=== PATIENT | female | born 1955 | race African-American/Black ===

== ENCOUNTER 2018-11-29 20:04 | Observation (INO) | payer MEDICARE, OTHER ==
[2018-11-29 23:13] LABS: ADD MAN DIFF? NO
[2018-11-29 23:17] LABS: BASOPHILS % 0.6 % (0.0-2.0); EOSINOPHILS # 0.2 10^3/ul (0.0-0.5); EOSINOPHILS % 2.5 % (0.0-7.0); HEMATOCRIT 35.2 % (37.0-47.0); HEMOGLOBIN 11.5 g/dl (12.0-16.0); LYMPHOCYTES # 2.6 10^3/ul (0.8-2.9); LYMPHOCYTES % 41.1 % (15.0-51.0); MEAN CORPUSCULAR HEMOGLOBIN 26.9 pg (29.0-33.0); MEAN CORPUSCULAR HGB CONC 32.7 g/dl (32.0-37.0); MEAN CORPUSCULAR VOLUME 82.4 fl (82.0-101.0); MEAN PLATELET VOLUME 11.1 fl (7.4-10.4); MONOCYTE # 0.4 10^3/ul (0.3-0.9); MONOCYTES % 6.6 % (0.0-11.0); NEUTROPHIL # 3.1 10^3/ul (1.6-7.5); NEUTROPHILS % 48.9 % (39.0-77.0); PLATELET COUNT 215 10^3/UL (140-415); RED BLOOD COUNT 4.27 10^6/ul (4.20-5.40); RED CELL DISTRIBUTION WIDTH 13.9 % (11.5-14.5)
[2018-11-29 23:17] LABS: WHITE BLOOD COUNT 6.4 10^3/ul (4.8-10.8)
[2018-11-29] MEDS: ASPIRIN 325 MG TAB PO (23:18)
[2018-11-29] MEDS: NITROGLYCERIN 2% 1 GM OINT PKT TD (23:18)
[2018-11-29 23:20] LABS: INR 0.91; PROTIME 12.4 Sec (11.9-14.9)
[2018-11-29 23:21] LABS: PARTIAL THROMBOPLASTIN TIME 29.7 Sec (23.0-35.0)
[2018-11-29 23:38] LABS: ANION GAP 8 (5-13); BLOOD UREA NITROGEN 19 mg/dl (7-20); CALCIUM 10.1 mg/dl (8.4-10.2); CARBON DIOXIDE 28 mmol/L (21-31); CHLORIDE 102 mmol/L (97-110); CREATININE 0.94 mg/dl (0.44-1.00); Estimated GFR > 60 mL/min (>60); GLUCOSE 268 mg/dl (70-220); POTASSIUM 4.8 mmol/L (3.5-5.1); SODIUM 138 mmol/L (135-144)
[2018-11-29 23:53] LABS: B-TYPE NATRIURETIC PEPTIDE 470 PG/ML (0-125); TROPONIN-I < 0.012 ng/ml (0.000-0.120)
[2018-11-30] MEDS ORDERED: GLUCOSE GEL 15 GRAM TUBE PO ×2 (04:00)
[2018-11-30] MEDS ORDERED: GLUCAGON 1 MG INJ IM (04:00)
[2018-11-30] MEDS ORDERED: GLUCOSE GEL 15 GRAM TUBE BUCCAL (04:00)
[2018-11-30] MEDS ORDERED: DEXTROSE 50% 50 ML SYRINGE IV ×2 (04:00)
[2018-11-30] MEDS: ACETAMINOPHEN 325 MG TAB PO (05:48)
[2018-11-30 06:27] LABS: ADD MAN DIFF? NO
[2018-11-30 06:32] LABS: WHITE BLOOD COUNT 5.4 10^3/ul (4.8-10.8)
[2018-11-30 06:32] LABS: BASOPHILS % 0.4 % (0.0-2.0); EOSINOPHILS # 0.2 10^3/ul (0.0-0.5); EOSINOPHILS % 3.3 % (0.0-7.0); HEMATOCRIT 32.4 % (37.0-47.0); HEMOGLOBIN 10.6 g/dl (12.0-16.0); LYMPHOCYTES # 2.2 10^3/ul (0.8-2.9); MEAN CORPUSCULAR HEMOGLOBIN 27.2 pg (29.0-33.0); MEAN CORPUSCULAR HGB CONC 32.7 g/dl (32.0-37.0); MEAN CORPUSCULAR VOLUME 83.1 fl (82.0-101.0); MEAN PLATELET VOLUME 11.2 fl (7.4-10.4); MONOCYTE # 0.4 10^3/ul (0.3-0.9); MONOCYTES % 7.4 % (0.0-11.0); NEUTROPHIL # 2.6 10^3/ul (1.6-7.5); NEUTROPHILS % 47.7 % (39.0-77.0); PLATELET COUNT 187 10^3/UL (140-415); RED CELL DISTRIBUTION WIDTH 13.8 % (11.5-14.5)
[2018-11-30 07:02] LABS: ALANINE AMINOTRANSFERASE 24 IU/L (13-69); ALBUMIN 3.7 g/dl (3.3-4.9); ALBUMIN/GLOBULIN RATIO 1.15; ALKALINE PHOSPHATASE 64 IU/L (42-121); ANION GAP 10 (5-13); ASPARTATE AMINO TRANSFERASE 19 IU/L (15-46); BILIRUBIN,INDIRECT 0.1 mg/dl (0-1.1); BILIRUBIN,TOTAL 0.1 mg/dl (0.2-1.3); BLOOD UREA NITROGEN 17 mg/dl (7-20); CALCIUM 9.7 mg/dl (8.4-10.2); CARBON DIOXIDE 26 mmol/L (21-31); CHLORIDE 104 mmol/L (97-110); CHOL/HDL RATIO 2.9 RATIO; CHOLESTEROL 105 mg/dl (100-200); CREATININE 1.05 mg/dl (0.44-1.00); Estimated GFR > 60 mL/min (>60); GLUCOSE 250 mg/dl (70-220); HDL CHOLESTEROL 36 mg/dl (35-98); LDL CHOLESTEROL,CALCULATED 27 mg/dl; POTASSIUM 4.3 mmol/L (3.5-5.1); SODIUM 140 mmol/L (135-144); TOTAL PROTEIN 6.9 g/dl (6.1-8.1); TRIGLYCERIDES 211 mg/dl (0-149)
[2018-11-30 07:06] LABS: CK-MB 0.45 ng/ml (0.0-2.4); TROPONIN-I < 0.012 ng/ml (0.000-0.120)
[2018-11-30 07:09] LABS: CK INDEX 1.2; CREATINE KINASE 37 IU/L (23-200)
[2018-11-30 07:16] LABS: HEMOGLOBIN A1C 9.3 % (0-5.9)
[2018-11-30] MEDS: FOLIC ACID 1 MG TAB PO (08:11)
[2018-11-30] MEDS: BENAZEPRIL 20 MG TAB PO (08:11)
[2018-11-30] MEDS: EZETIMIBE 10 MG TAB PO (08:11)
[2018-11-30] MEDS: DORZOLAMIDE/TIMOLOL 10 ML OPH BOTH EYES ×2 (08:11→21:11)
[2018-11-30] MEDS: INSULIN ASPART [NOVOLOG] 3 ML PEN SC ×4 (08:14→21:41)
[2018-11-30] MEDS: ENOXAPARIN 40 MG/0.4 ML SYG SC (08:15)
[2018-11-30] MEDS ORDERED: NON-FORMULARY/PATIENT OWN MED (Canagliflozin (Invokana) 300 MG) PO (09:00)
[2018-11-30] MEDS: MULTIVITAMINS/MINERALS TAB PO (10:15)
[2018-11-30 11:41] LABS: CREATINE KINASE 40 IU/L (23-200)
[2018-11-30 11:52] LABS: CK INDEX 1.1; CK-MB 0.42 ng/ml (0.0-2.4); TROPONIN-I < 0.012 ng/ml (0.000-0.120)
[2018-11-30] MEDS: ASPIRIN (EC) 81 MG TAB PO (14:26)
[2018-11-30] MEDS ORDERED: ATORVASTATIN 40 MG TAB PO (21:00)
[2018-11-30] MEDS: LATANOPROST 0.005% 2.5 ML OPH BOTH EYES (21:11)
[2018-11-30] MEDS: ATORVASTATIN 40 MG TAB PO (21:12)
[2018-12-01] MEDS: ACCU-CHEK XX (01:55)
[2018-12-01 06:12] LABS: ADD MAN DIFF? NO
[2018-12-01 06:19] LABS: WHITE BLOOD COUNT 4.9 10^3/ul (4.8-10.8)
[2018-12-01 06:19] LABS: BASOPHILS % 0.6 % (0.0-2.0); EOSINOPHILS # 0.1 10^3/ul (0.0-0.5); EOSINOPHILS % 2.4 % (0.0-7.0); HEMATOCRIT 34.5 % (37.0-47.0); HEMOGLOBIN 11.2 g/dl (12.0-16.0); MEAN CORPUSCULAR HEMOGLOBIN 27.1 pg (29.0-33.0); MEAN CORPUSCULAR HGB CONC 32.5 g/dl (32.0-37.0); MEAN CORPUSCULAR VOLUME 83.3 fl (82.0-101.0); MEAN PLATELET VOLUME 11.2 fl (7.4-10.4); MONOCYTE # 0.4 10^3/ul (0.3-0.9); NEUTROPHIL # 2.4 10^3/ul (1.6-7.5); NEUTROPHILS % 48.6 % (39.0-77.0); PLATELET COUNT 193 10^3/UL (140-415); RED BLOOD COUNT 4.14 10^6/ul (4.20-5.40); RED CELL DISTRIBUTION WIDTH 13.7 % (11.5-14.5)
[2018-12-01 07:18] LABS: ANION GAP 6 (5-13); BLOOD UREA NITROGEN 18 mg/dl (7-20); CALCIUM 9.4 mg/dl (8.4-10.2); CARBON DIOXIDE 29 mmol/L (21-31); CHLORIDE 105 mmol/L (97-110); CREATININE 1.02 mg/dl (0.44-1.00); Estimated GFR > 60 mL/min (>60); GLUCOSE 219 mg/dl (70-220); POTASSIUM 4.4 mmol/L (3.5-5.1); SODIUM 140 mmol/L (135-144)
[2018-12-01] MEDS: EZETIMIBE 10 MG TAB PO (08:22)
[2018-12-01] MEDS: SPIRONOLACTONE 25 MG TAB PO (08:24)
[2018-12-01] MEDS: ASPIRIN (EC) 81 MG TAB PO (08:24)
[2018-12-01] MEDS: DORZOLAMIDE/TIMOLOL 10 ML OPH BOTH EYES (08:25)
[2018-12-01] MEDS: FOLIC ACID 1 MG TAB PO (08:25)
[2018-12-01] MEDS: MULTIVITAMINS/MINERALS TAB PO (08:25)
[2018-12-01] MEDS: BENAZEPRIL 20 MG TAB PO (08:25)
[2018-12-01] MEDS: INSULIN ASPART [NOVOLOG] 3 ML PEN SC ×2 (09:37→12:17)
[2018-12-01] MEDS: ENOXAPARIN 40 MG/0.4 ML SYG SC (09:37)
== END 2018-12-01 16:43 | disposition home or self-care (01) ==
LOC: E/R 20:04 → 6WM 11-30 01:18
DX: R07.89 Other chest pain (principal); I11.0 Hypertensive heart disease with heart failure; I50.9 Heart failure, unspecified; E11.65 Type 2 diabetes mellitus with hyperglycemia; I42.9 Cardiomyopathy, unspecified; E78.5 Hyperlipidemia, unspecified; M06.9 Rheumatoid arthritis, unspecified; Z79.82 Long term (current) use of aspirin; Z79.84 Long term (current) use of oral hypoglycemic drugs
CPT/HCPCS: 36415; 71045; 80048; 80053; 80061; 82550; 82553; 82962; 83036; 83880; 84443; 84484; 85025; 85610; 85730; 93005; 99285-25; G0378